=== PATIENT | female | born 1975 | race American Indian/Alaskan Native ===

== ENCOUNTER 2017-10-23 09:28 | Emergency (ER) | payer OTHER, BC ==
[2017-10-23] MEDS ORDERED: MOTRIN PO ONE (10:19)
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
--- NOTE | 2017-10-23 12:21 | XRay Report ---
FINAL REPORT EXAM: XR SPINE CERVICAL 2-3V HISTORY: neck pain TECHNIQUE: Four view cervical spine were performed Comparison: None FINDINGS: There is straightening of the normal cervical lordosis. The lower cervical spine at the cervicothoracic junction is poorly imaged despite swimmer's view. There appears to be calcification of the anterior disc at C6/C7. Spinal laminar line is intact. There is no significant uncovertebral hypertrophy. Imaged lung apices are clear. C1 lateral masses align normally on C2. The base of the odontoid is intact. IMPRESSION: Straightened normal cervical lordosis with incomplete visualization of the cervicothoracic junction. Etiology for the loss of cervical lordosis is unknown, consider muscular spasm. No definite fracture or subluxation.
--- NOTE | 2017-10-23 12:24 | XRay Report ---
FINAL REPORT EXAM: XR SPINE LUMBOSACRAL 2-3V HISTORY: low back pain TECHNIQUE: Three views lumbosacral spine Comparison: None FINDINGS: Slight straightening of the normal lumbar lordosis. Marginal osteophytic change. No compression fracture. Lumbosacral junction poorly delineated due to tangential beam. No scoliosis. SI joints are. No suspicious calcifications. The imaged sacral arches are unremarkable. IMPRESSION: Straightened lumbar lordosis. No compression fracture. Mild degenerative spondylitic change.
--- NOTE | 2017-10-23 12:27 | XRay Report ---
FINAL REPORT EXAM: XR HIP 2-3V LT HISTORY: left hip pain TECHNIQUE: AP pelvis and lateral view left hip Comparison: None FINDINGS: Normal bony mineralization. Widening of the pubic symphysis. Femoral head is normally located. No fracture or dislocation of the femoral neck identified. Sacral arches are intact. Femoral head is spherical. IMPRESSION: Suboptimal bony technique. Widened pubic symphysis. No hip fracture identified. If there is concern for acute trauma, recommend MRI pelvis.
[2017-10-23 12:37] VITALS: BP 142/78
== END 2017-10-23 12:36 | disposition home or self-care (01) ==
LOC: ED 09:28
DX: S13.4XXA Sprain of ligaments of cervical spine, initial encounter (principal); S39.012A Strain of muscle, fascia and tendon of lower back, initial encounter; S76.012A Strain of muscle, fascia and tendon of left hip, initial encounter; V89.2XXA Person injured in unspecified motor-vehicle accident, traffic, initial encounter; Y93.89 Activity, other specified; Y92.89 Other specified places as the place of occurrence of the external cause; Y99.8 Other external cause status
CPT/HCPCS: 72040; 72100; 99283